=== PATIENT | female | born 1950 | race Caucasian/White ===

== ENCOUNTER → 2023-12-27 06:54 | Outpatient (REF) | payer MEDICARE, SELFPAY ==
[2023-12-27 10:28] LABS: ALT (SGPT) 20 U/L (0-35); AST (SGOT) 23 U/L (14-36); Albumin 4.2 g/dl (3.5-5.0); Alkaline Phosphatase 111 U/L (38-126); Blood Urea Nitrogen 15 mg/dl (7-17); Calcium 9.5 mg/dl (8.4-10.2); Carbon Dioxide 31 mmol/L (22-30); Chloride 105 mmol/L (98-107); Glucose 98 mg/dl (70-99); HDL Cholesterol 64 mg/dl; LDL Cholesterol, Calculated 108 mg/dl; Sodium 141 mmol/L (135-145); Total Bilirubin 0.6 mg/dl (0.2-1.3); Total Cholesterol 190 mg/dl (50-199); Total Protein 7.1 g/dl (6.3-8.2); Triglyceride 93 mg/dl (10-149); Very Low Density Lipoprotein 18 mg/dl (0-30); eGFR > 60.00
== END ==
LOC: HWLAB 06:54
PROVIDERS: ATTENDING PHYSICIAN Physician Assistant
DX: E55.9 Vitamin D deficiency, unspecified (principal); E78.5 Hyperlipidemia, unspecified
CPT/HCPCS: 36415; 80053; 80061

== ENCOUNTER → 2024-01-25 07:23 | Outpatient (REF) | payer MEDICARE, SELFPAY | LOC: HWWDC 07:23 | PROVIDERS: ATTENDING PHYSICIAN Physician Assistant | DX: Z12.31 Encounter for screening mammogram for malignant neoplasm of breast (principal) | CPT/HCPCS: 77063; 77067 ==

== ENCOUNTER → 2024-12-28 06:34 | Outpatient (REF) | payer MEDICARE, SELFPAY ==
[2024-12-28 09:46] LABS: Hematocrit 40.7 % (37.0-47.0); Hemoglobin 13.1 g/dL (12.0-16.0); Mean Corp Hgb Conc. 32.2 g/dL (33.0-37.0); Mean Corpuscular Volume 89.1 fL (81.0-99.0); Nucleated Red Blood Cells % 0 %; Platelet Count 208 10^3/uL (130-400); Red Cell Dist. Width 14.0 % (11.5-14.5)
[2024-12-28 10:15] LABS: ALT (SGPT) 20 U/L (0-35); AST (SGOT) 20 U/L (14-36); Albumin 4.2 g/dl (3.5-5.0); Alkaline Phosphatase 106 U/L (38-126); Blood Urea Nitrogen 16 mg/dl (7-17); Calcium 9.4 mg/dl (8.4-10.2); Carbon Dioxide 28 mmol/L (22-30); Chloride 108 mmol/L (98-107); Glucose 94 mg/dl (70-99); HDL Cholesterol 59 mg/dl; LDL Cholesterol, Calculated 112 mg/dl; Potassium 4.0 mmol/L (3.5-5.1); Sodium 141 mmol/L (135-145); Total Protein 7.3 g/dl (6.3-8.2); Very Low Density Lipoprotein 17 mg/dl (0-30); eGFR > 60.00
[2024-12-28 10:28] LABS: Vitamin D, 25-OH*** 34.8 ng/mL (30-80)
[2024-12-28 15:06] LABS: Rheumatoid Agglutinin Less Than 10 IU (<10 IU)
[2024-12-30 02:02] LABS: CCP Antibody IgG/IgA 3 Units (0-19)
[2024-12-30 06:19] LABS: ANA, IgG Reflex to HEp-2 None Detected (None Detected)
== END ==
LOC: HWLAB 06:34
PROVIDERS: ATTENDING PHYSICIAN Physician Assistant
DX: E55.9 Vitamin D deficiency, unspecified (principal); E78.5 Hyperlipidemia, unspecified; M15.0 Primary generalized (osteo)arthritis
CPT/HCPCS: 36415; 80053; 80061; 82306; 85025; 85652; 86038; 86200; 86430

== ENCOUNTER → 2025-02-20 07:56 | Outpatient (REF) | payer MEDICARE, SELFPAY | LOC: HWRAD 07:56 | PROVIDERS: ATTENDING PHYSICIAN Physician Assistant | DX: Z12.31 Encounter for screening mammogram for malignant neoplasm of breast (principal); M81.0 Age-related osteoporosis without current pathological fracture | CPT/HCPCS: 77063; 77067; 77080 ==

== ENCOUNTER 2025-03-28 07:24 | Outpatient (RCR) | payer MEDICARE, SELFPAY | END 2025-03-28 23:59 | disposition home or self-care (01) | LOC: RPT 07:24 | PROVIDERS: ATTENDING PHYSICIAN Physician Assistant Medical; FAMILY PHYSICIAN Physician Assistant | DX: M70.61 Trochanteric bursitis, right hip (principal); M70.62 Trochanteric bursitis, left hip; M76.899 Other specified enthesopathies of unspecified lower limb, excluding foot; Z73.6 Limitation of activities due to disability; R26.2 Difficulty in walking, not elsewhere classified; M62.81 Muscle weakness (generalized); M25.552 Pain in left hip; M25.551 Pain in right hip; R26.89 Other abnormalities of gait and mobility; Z96.643 Presence of artificial hip joint, bilateral | CPT/HCPCS: 97110; 97140; 97162 ==

== ENCOUNTER 2025-04-25 06:26 | Outpatient (RCR) | payer MEDICARE, SELFPAY | END 2025-04-25 23:59 | disposition home or self-care (01) | LOC: RPT 06:26 | PROVIDERS: ATTENDING PHYSICIAN Physician Assistant Medical; FAMILY PHYSICIAN Physician Assistant | DX: M70.61 Trochanteric bursitis, right hip (principal); M70.62 Trochanteric bursitis, left hip; M76.899 Other specified enthesopathies of unspecified lower limb, excluding foot; Z73.6 Limitation of activities due to disability; R26.2 Difficulty in walking, not elsewhere classified; M62.81 Muscle weakness (generalized); M25.552 Pain in left hip; M25.551 Pain in right hip; R26.89 Other abnormalities of gait and mobility; Z96.643 Presence of artificial hip joint, bilateral | CPT/HCPCS: 97110; 97112; 97140; 97530 ==

== ENCOUNTER 2025-05-16 07:04 | Outpatient (RCR) | payer MEDICARE, SELFPAY | END 2025-05-16 09:11 | disposition home or self-care (01) | LOC: RPT 07:04 | PROVIDERS: ATTENDING PHYSICIAN Physician Assistant Medical; FAMILY PHYSICIAN Physician Assistant | DX: M70.61 Trochanteric bursitis, right hip (principal); M70.62 Trochanteric bursitis, left hip; M76.899 Other specified enthesopathies of unspecified lower limb, excluding foot; Z73.6 Limitation of activities due to disability; R26.2 Difficulty in walking, not elsewhere classified; M62.81 Muscle weakness (generalized); M25.552 Pain in left hip; M25.551 Pain in right hip; R26.89 Other abnormalities of gait and mobility; Z96.643 Presence of artificial hip joint, bilateral | CPT/HCPCS: 97110; 97112; 97140 ==